=== PATIENT | male | born 1970 | race Caucasian/White ===

== ENCOUNTER 2022-01-23 11:05 | Day surgery (SDC) | payer BC, SELFPAY ==
[~2022-01-23] VITALS: Ht 182.9 cm; Wt 97.5 kg
[~2022-01-23 11:05] MED LIST: CEFAZOLIN SOD 2 GM in D5W 50 ML IV ONE
[2022-01-23] MEDS ORDERED: LR 1,000 ML IV SCH (15:15)
[2022-01-23] MEDS ORDERED: HYDROmorphone 2 MG/ML VIAL IVP PRN (15:15)
[2022-01-23] MEDS ORDERED: KETOROLAC TROMETHAMINE 30 MG VIAL IVP PRN (15:15)
[2022-01-23] MEDS ORDERED: ONDANSETRON HCL 4 MG/2 ML VIAL IVP PRN (15:15)
[2022-01-23] MEDS ORDERED: HYDROmorphone 1 MG/ML INJ. CARTRIDGE IVP PRN (15:15)
[2022-01-23] MEDS ORDERED: KETOROLAC TROMETHAMINE 30 MG VIAL ONE (16:53)
[2022-01-23 17:20] VITALS: BP_SYST 134
[2022-01-23 17:39] VITALS: BP_SYST 137
[2022-01-23 22:21] VITALS: BP_SYST 131
== END 2022-01-23 23:05 | disposition home or self-care (01) ==
LOC: SDS 11:05 → SMU 11:06 → SDS 23:05
PROVIDERS: ATTEND Surgery
DX: K40.20 Bilateral inguinal hernia, without obstruction or gangrene, not specified as recurrent (principal); R10.2 Pelvic and perineal pain; Z79.899 Other long term (current) drug therapy; Z20.822 Contact with and (suspected) exposure to COVID-19
CPT/HCPCS: 36415; 49650; 87426; C1727; C1781; J0690; J1885; J7060; S2900; U0003; E0190